=== PATIENT | male | born 2000 | race Caucasian/White ===

== ENCOUNTER 2019-01-18 19:32 | Emergency (ER) | payer MEDICAID ==
[~2019-01-18] VITALS: Ht 193 cm; Wt 88.5 kg
[~2019-01-18 19:32] MED LIST: CLONAZEPAN; IBUPROFEN; [UNRECOGNIZED DRUG - CODE]
[2019-01-18 19:50] VITALS: BP_SYST 139
--- NOTE | 2019-01-18 19:50 | NUR ---
Patient to ER bed 8 to gown for evaluation. Side rails up.
--- NOTE | 2019-01-18 19:55 | NUR ---
Pt complains of cough x 3 days. Pt states chest hurts every time he coughs. Per patient, he doesn't think he has a fever. Pt states he does not live in a home right now and cough has been getting worse because of how cold it has been. No other injuries/complaints per patient or noted.
--- NOTE | 2019-01-18 19:57 | NUR ---
BHAVIN Laughlin at bedside examining patient.
--- NOTE | 2019-01-18 21:17 | NUR ---
Discharge paperwork was given to patient, but patient stated he did not have a place to stay. Offered homeless packet. Pt was asking if he can stay for a bit. Gave patient sandwich and orange juice. Pt resting comfortably in hospital bed.
[2019-01-18 22:46] VITALS: BP_SYST 139
--- NOTE | 2019-01-18 22:47 | NUR ---
Patient given written and verbal discharge instructions and verbalizes understanding. ER MD discussed with patient the results and treatment provided. Patient in stable condition. ID arm band removed. Rx of Flonase given. Patient educated on pain management and to follow up with PMD. Pain Scale 0/10. Opportunity for questions provided and answered. Medication side effect fact sheet provided.
== END 2019-01-18 22:46 | disposition home or self-care (01) ==
LOC: SED 19:32
DX: J06.9 Acute upper respiratory infection, unspecified (principal); F41.9 Anxiety disorder, unspecified; J45.909 Unspecified asthma, uncomplicated
CPT/HCPCS: 99283

== ENCOUNTER 2019-03-11 13:37 | Emergency (ER) | payer MEDICAID ==
[~2019-03-11] VITALS: Ht 185.4 cm; Wt 90.7 kg
[2019-03-11 13:37] VITALS: BP_SYST 121
[2019-03-11] MEDS ORDERED: LIDOCAINE 1% 10 MG/ML, 20 ML MDV INJ ONE (15:45)
[2019-03-11] MEDS ORDERED: HYDROcodone/ACETAMIN 5-325 MG TAB (NORCO/ VICODIN) PO ONE (16:45)
[2019-03-11 17:06] VITALS: BP_SYST 121
== END 2019-03-11 17:05 | disposition home or self-care (01) ==
LOC: SED 13:37
DX: L02.512 Cutaneous abscess of left hand (principal); F41.9 Anxiety disorder, unspecified; J45.909 Unspecified asthma, uncomplicated; R03.0 Elevated blood-pressure reading, without diagnosis of hypertension; F17.200 Nicotine dependence, unspecified, uncomplicated; Z79.899 Other long term (current) drug therapy
CPT/HCPCS: 26010; 73140; 99283; J2001

== ENCOUNTER 2020-01-14 09:29 | Emergency (ER) | payer MEDICAID ==
[~2020-01-14] VITALS: Ht 185.4 cm; Wt 99.8 kg
[2020-01-14 09:37] VITALS: BP_SYST 120
--- NOTE | 2020-01-14 09:40 | NUR ---
Patient to ER bed H1 to gown for evaluation. Side rails up.
--- NOTE | 2020-01-14 09:40 | NUR ---
PT CAME FOR OK TO BOOK. PT TO BE MEDICALLY CLEARED
--- NOTE | 2020-01-14 09:45 | NUR ---
ER at bedside examining patient.
[2020-01-14 09:50] VITALS: BP_SYST 120
--- NOTE | 2020-01-14 09:50 | NUR ---
Patient given written and verbal discharge instructions and verbalizes understanding. ER MD discussed with patient the results and treatment provided. Patient in stable condition. ID arm band removed. Rx of NEOMYCIN given. Patient educated on pain management and to follow up with PMD. Pain Scale 0/10. Opportunity for questions provided and answered. Medication side effect fact sheet provided.
== END 2020-01-14 09:50 | disposition home or self-care (01) ==
LOC: SED 09:29
DX: S60.511A Abrasion of right hand, initial encounter (principal); J45.909 Unspecified asthma, uncomplicated; F41.9 Anxiety disorder, unspecified; X58.XXXA Exposure to other specified factors, initial encounter; Y93.89 Activity, other specified; Y92.89 Other specified places as the place of occurrence of the external cause; Y99.8 Other external cause status
CPT/HCPCS: 99283

== ENCOUNTER 2021-07-19 17:18 | Emergency (ER) | payer MEDICAID ==
[~2021-07-19] VITALS: Ht 162.6 cm; Wt 64.4 kg
[2021-07-19 17:20] VITALS: BP_SYST 102
--- NOTE | 2021-07-19 17:25 | NUR ---
Pt bib by law enforcement for medical clearance. Pt was tasered by law enforcement for combative behavior. Pt is Alert and under the influence. Pt has multiple abrasions on the extremeties.
--- NOTE | 2021-07-19 17:26 | NUR ---
ER at bedside examining patient.
--- NOTE | 2021-07-19 17:30 | NUR ---
Pt abrasions cleansed with betadine, normal saline and bacitracin. Pt tolerated well.
[2021-07-19] MEDS ORDERED: DIPH-TET-PERTUS Vaccine 0.5 ML VIAL (ADACEL) I.M. ONE (17:45)
[2021-07-19] MEDS ORDERED: BACITRACIN 1 GM OINT TP ONE (17:45)
[2021-07-19 18:04] VITALS: BP_SYST 102
--- NOTE | 2021-07-19 18:04 | NUR ---
Patient given written and verbal discharge instructions and verbalizes understanding. ER MD discussed with patient the results and treatment provided. Patient in stable condition. ID arm band removed. Patient educated on pain management and to follow up with PMD. Pain Scale 0/10. Opportunity for questions provided and answered. Medication side effect fact sheet provided.
== END 2021-07-19 18:04 | disposition home or self-care (01) ==
LOC: SED 17:18
DX: S40.811A Abrasion of right upper arm, initial encounter (principal); S40.812A Abrasion of left upper arm, initial encounter; S80.811A Abrasion, right lower leg, initial encounter; S80.812A Abrasion, left lower leg, initial encounter; F19.10 Other psychoactive substance abuse, uncomplicated; X58.XXXA Exposure to other specified factors, initial encounter; Y93.89 Activity, other specified; Y92.89 Other specified places as the place of occurrence of the external cause; Y99.8 Other external cause status
CPT/HCPCS: 90715; 99283